=== PATIENT | male | born 1995 | race Caucasian/White ===

== ENCOUNTER 2016-11-28 20:59 | Emergency (ER) | payer MEDICAID | END 2016-11-28 23:45 | disposition home or self-care (01) | LOC: D.ER 20:59 | DX: T78.40XA Allergy, unspecified, initial encounter (principal); X58.XXXA Exposure to other specified factors, initial encounter; J39.8 Other specified diseases of upper respiratory tract ==

== ENCOUNTER 2016-11-29 09:07 | Emergency (ER) | payer MEDICAID ==
[2016-11-29 10:12] LABS: BASOPHILS 0 % (0-2); EOSINOPHILS 0 % (0-7); HEMATOCRIT 41.5 % (42.0-54.0); HEMOGLOBIN 14.2 g/dL (13.5-17.5); IMMATURE GRANULOCYTES 0.3 % (0-5); LYMPHOCYTES 13.9 % (15-50); MCH 31.9 pg (26.0-34.0); MCHC 34.2 g/dL (31.0-37.0); MCV 93.3 fL (80.0-100.0); MEAN PLATELET VOLUME 9.8 fL (7.4-10.4); MONOCYTES 5.3 % (2-11); NEUTROPHILS 80.5 % (40-80); PLATELET COUNT 205 10x3/uL (130-400); RBC 4.45 10x6/uL (4.20-6.10); RDW 12.6 % (11.5-14.5); WBC 9.2 10x3/uL (4.8-10.8)
[2016-11-29 10:20] LABS: CALC OSMOLALITY 285 mosm/kg (275-300); CALCIUM 9.2 mg/dL (8.5-10.1); CARBON DIOXIDE 28.1 mmol/L (21.0-32.0); CHLORIDE - SERUM 99 mmol/L (98-107); CREATININE - SERUM 1.1 mg/dL (0.6-1.3); GLUCOSE 194 mg/dL (74-106); POTASSIUM - SERUM 4.1 mmol/L (3.5-5.1); SODIUM 140 mmol/L (136-145); UREA NITROGEN 18 mg/dL (7-18); eGFR NON AFRICAN AMERICAN 88 mL/min (90-120)
== END 2016-11-29 13:08 | disposition home or self-care (01) ==
LOC: D.ER 09:07
PROVIDERS: Emergency Medicine
DX: R06.1 Stridor (principal); M54.2 Cervicalgia

== ENCOUNTER 2016-12-01 12:42 | Emergency (ER) | payer MEDICAID | END 2016-12-01 14:58 | disposition home or self-care (01) | LOC: D.ER 12:42 | DX: R09.1 Pleurisy (principal) ==

== ENCOUNTER 2016-12-09 18:43 | Emergency (ER) | payer MEDICAID | END 2016-12-09 21:50 | disposition home or self-care (01) | LOC: D.ER 18:43 | DX: M62.830 Muscle spasm of back (principal) ==

== ENCOUNTER 2017-04-22 20:26 | Emergency (ER) | payer MEDICAID ==
[2017-04-22 21:19] LABS: BASOPHILS 0.1 % (0-2); EOSINOPHILS 0.4 % (0-7); HEMATOCRIT 41.8 % (42.0-54.0); HEMOGLOBIN 14.3 g/dL (13.5-17.5); IMMATURE GRANULOCYTES 0.2 % (0-5); LYMPHOCYTES 22.4 % (15-50); MCH 31.8 pg (26.0-34.0); MCHC 34.2 g/dL (31.0-37.0); MCV 93.1 fL (80.0-100.0); MONOCYTES 6.3 % (2-11); NEUTROPHILS 70.6 % (40-80); PLATELET COUNT 242 10x3/uL (130-400); RBC 4.49 10x6/uL (4.20-6.10); RDW 12.6 % (11.5-14.5); WBC 10.4 10x3/uL (4.8-10.8)
[2017-04-22 21:37] LABS: ALBUMIN 4.5 g/dL (3.4-5.0); ALKALINE PHOSPHATASE 58 U/L (46-116); ALT (SGPT) 20 U/L (10-68); BILIRUBIN - TOTAL 0.24 mg/dL (0.2-1.3); CALCIUM 9.4 mg/dL (8.5-10.1); CARBON DIOXIDE 32.2 mmol/L (21.0-32.0); CHLORIDE - SERUM 102 mmol/L (98-107); PROTEIN - SERUM 7.6 g/dL (6.4-8.2); SODIUM 141 mmol/L (136-145); UREA NITROGEN 14 mg/dL (7-18); eGFR NON AFRICAN AMERICAN > 90 mL/min (90-120)
[2017-04-22 21:42] LABS: CALC OSMOLALITY 279 mosm/kg (275-300); GLUCOSE 54 mg/dL (74-106); TROPONIN-I < 0.017 ng/mL (0.000-0.060)
== END 2017-04-22 22:59 | disposition home or self-care (01) ==
LOC: D.ER 20:26
PROVIDERS: Family Medicine
DX: J38.6 Stenosis of larynx (principal); J39.8 Other specified diseases of upper respiratory tract; F17.200 Nicotine dependence, unspecified, uncomplicated